=== PATIENT | female | born 1965 | race Caucasian/White ===

== ENCOUNTER 2017-11-10 13:11 | Emergency (ER) | payer MEDICAID ==
[~2017-11-10] VITALS: Ht 157.5 cm; Wt 74.4 kg
[2017-11-10 13:35] VITALS: Ht 157.5 cm; Wt 74.4 kg
[2017-11-10 15:43] VITALS: BP 120/62
== END 2017-11-10 15:30 | disposition home or self-care (01) ==
LOC: ED 13:11
DX: B34.9 Viral infection, unspecified (principal); I10 Essential (primary) hypertension; E11.9 Type 2 diabetes mellitus without complications; E78.00 Pure hypercholesterolemia, unspecified
CPT/HCPCS: J1885; J7030; J7613; J7644; Q0162

== ENCOUNTER 2018-10-04 17:43 | Emergency (ER) | payer SELFPAY ==
[~2018-10-04] VITALS: Ht 157.5 cm; Wt 77.1 kg
[2018-10-04 18:00] VITALS: BP 156/77; Ht 157.5 cm; Wt 77.1 kg
== END 2018-10-04 19:03 | disposition home or self-care (01) ==
LOC: ED 17:43
DX: H92.02 Otalgia, left ear (principal); I10 Essential (primary) hypertension; E11.9 Type 2 diabetes mellitus without complications; E78.00 Pure hypercholesterolemia, unspecified